=== PATIENT | male | born 1970 | race Caucasian/White ===

== ENCOUNTER 2016-12-12 09:36 | Inpatient (IN) ==
--- NOTE | 2016-12-12 09:52 | Emergency Department Note ---
Disposition Clinical Impression: Suicidal ideation Disposition: Admitted As Inpatient Condition: Good Referrals: NONE,PCP [Primary Care Provider] - Forms: ED Satisfaction Letter Time of Disposition: 12:15 Psych HPI - General Chief Complaint: ED Psychiatric Symptoms Stated Complaint: SI/depression Time Seen by Provider: 12/12/16 09:42 Source: patient, family Mode of arrival: ambulatory Limitations: no limitations Nursing Notes Reviewed: Yes Vital Signs Reviewed: Yes - History of Present Illness HPI Narrative: Patient presents to the ED in the chief complaint of suicidal ideation. Patient has a history of anxiety and depression and previous suicidal ideation. States that he has never had a suicide attempt because he is afraid of going to help. No recent inciting factors but does state he feels like he wants to over the past 2 weeks. Has not really wanted to get out of bed, not eating or drinking well, according to the . Denies any ingestions. He is on psychiatric medicines, which she has been taking as prescribed. Denies any drug use. Denies any pain anywhere. No fever or chills. Does state he feels slightly short of breath but thinks this is because he is out of his asthma inhaler. - Related Data Home Medications Medication Instructions Recorded Confirmed Quetiapine Fumarate [Seroquel] 50 mg PO HS 12/12/16 12/12/16 Sertraline [Zoloft] 50 mg PO 1700 12/12/16 12/12/16 clonazePAM [Clonazepam] 1 mg PO BID PRN 12/12/16 12/12/16 Allergies Allergy/AdvReac Type Severity Reaction Status Date / Time No Known Allergies Allergy Verified 12/12/16 09:41 All systems ED: reviewed and negative except as stated. Constitutional: Denies: fever Cardiovascular: Denies: chest pain Respiratory: Reports: cough, dyspnea Gastrointestinal: Denies: hematochezia Psychiatric: Reports: anxiety, depression, suicidal thoughts Past Medical History - Past Medical History Attestation: Yes The following information was validated with the patient. Source: patient Medical history: Reports: asthma Surgical history: Reports: non-contributory Psychiatric history: Reports: anxiety, depression, panic disorder - Social History Smoking Status: Current some day smoker Smokeless Tobacco Status: No Alcohol use: Reports: none Drug use: Reports: cocaine Physical Exam - General Limitations: no limitations General appearance: alert, in no apparent distress - Head Head exam: atraumatic, normocephalic, normal inspection - Eye Eye exam: Present: normal appearance, PERRL, EOMI - ENT ENT exam: normal exam, normal oropharynx, mucous membranes moist - Neck Neck exam: Present: normal inspection, full ROM, trachea midline - Chest Chest inspection: Present: normal inspection, symmetric chest wall rise - Respiratory Respiratory exam: Present: wheezes - Cardiovascular Cardiovascular exam: Present: regular rate, normal rhythm, normal heart sounds - Abdominal Exam Abdominal exam: Present: soft, Non-Tender. Absent: tenderness, distention, guarding, rebound, rigidity - Extremities Exam Extremities exam: Present: normal inspection, full ROM. Absent: tenderness, pedal edema - Neurological Exam Neurological exam: Present: alert, oriented X3 - Psychiatric Psychiatric exam: Present: depressed, flat affect. Absent: normal affect, normal mood - Skin Skin exam: Present: warm, dry, intact, normal color Course - Reevaluation(s) Reevaluation #1: 1a will admit. Time: 12:14 Vital Signs Temperature 97.5 F L 12/12/16 09:37 Pulse Rate 78 12/12/16 09:37 Respiratory Rate 16 12/12/16 09:37 Blood Pressure 124/86 12/12/16 09:37 O2 Sat by Pulse Oximetry 100 12/12/16 09:37 Temperature 97.5 F L 12/12/16 09:37 Pulse Rate 78 12/12/16 09:44 Respiratory Rate 16 12/12/16 10:57 Blood Pressure 124/86 12/12/16 09:44 O2 Sat by Pulse Oximetry 94 12/12/16 10:57 Oxygen Delivery Oxygen Delivery Room Air Psych - Lab Data Result diagrams: 12/12/16 09:57 12/12/16 09:57 Lab Results 12/12/16 12/12/16 12/12/16 Range/Units 09:51 09:51 09:57 WBC 7.6 (4.3-11.1) K/mcL RBC 5.59 H (4.19-5.50) M/mcL Hgb 16.4 (12.9-16.9) g/dL Hct 47.4 (37.5-50.1) % MCV 84.8 (83.0-100.0) fL MCH 29.3 (28.0-33.3) pg MCHC 34.6 (31.6-35.5) g/dL RDW 12.0 (11.5-14.5) % Plt Count 218 (140-400) K/mcL MPV 9.4 (9.4-12.4) fL Immature Gran % 0.3 (0-4) % Seg Neutrophils % 60.4 % Lymphocytes % 30.3 % Monocytes % 6.1 % Eosinophils % 2.4 % Basophils % 0.5 % Neutrophils # 4.6 (1.6-8.9) K/mcL Lymphocytes # 2.3 (0.6-4.6) K/mcL Monocytes # 0.5 (0.0-1.3) K/mcL Eosinophils # 0.2 (0.0-0.6) K/mcL Basophils # 0.0 (0.0-0.2) K/mcL Sodium (136-145) mEq/L Potassium (3.5-4.5) mEq/L Chloride (98-109) mEq/L Carbon Dioxide (19-29) mEq/L BUN (8-26) mg/dL Creatinine (0.72-1.25) mg/dL Est GFR ( Amer) (> 60) Est GFR (Non-Af Amer) (> 60) BUN/Creatinine Ratio (6-26) Glucose (70-99) mg/dL Calculated Osmolality (280-300) Calcium (8.6-10.8) mg/dL Urine Color Yellow (Yellow) Urine Clarity Clear (Clear) Urine pH 6.0 (5.0-8.0) pH Units Ur Specific [place] 1.017 (1.010-1.025) Urine Protein Negative (Neg-Trace) mg/dL Urine Glucose (UA) Normal (Normal) mg/dL Urine Ketones Negative (Negative) mg/dL Urine Blood Negative (Negative) Urine Nitrite Negative (Negative) Urine Bilirubin Negative (Negative) Urine Urobilinogen Normal (Normal) mg/dL Ur Leukocyte Esterase Negative (Negative) Salicylates (15-30) mg/dL Urine Opiates Screen Negative (Ysmuxs=877) ng/mL Acetaminophen (10-30) mcg/mL Ur Barbiturates Screen Negative (Ifabks=601) ng/mL Ur Phencyclidine Scrn Negative (Cutoff=25) ng/mL Ur Amphetamines Screen Negative (Npcswc=2312) ng/mL U Benzodiazepines Scrn Positive H (Vzbpty=922) ng/mL Urine Cocaine Screen Negative (Cutoff= 300) ng/mL U Marijuana (THC) Screen Negative (Cutoff = 50) ng/mL Ethyl Alcohol (0-10) mg/dL 12/12/16 Range/Units 09:57 WBC (4.3-11.1) K/mcL RBC (4.19-5.50) M/mcL Hgb (12.9-16.9) g/dL Hct (37.5-50.1) % MCV (83.0-100.0) fL MCH (28.0-33.3) pg MCHC (31.6-35.5) g/dL RDW (11.5-14.5) % Plt Count (140-400) K/mcL MPV (9.4-12.4) fL Immature Gran % (0-4) % Seg Neutrophils % % Lymphocytes % % Monocytes % % Eosinophils % % Basophils % % Neutrophils # (1.6-8.9) K/mcL Lymphocytes # (0.6-4.6) K/mcL Monocytes # (0.0-1.3) K/mcL Eosinophils # (0.0-0.6) K/mcL Basophils # (0.0-0.2) K/mcL Sodium 138 (136-145) mEq/L Potassium 4.0 (3.5-4.5) mEq/L Chloride 106 (98-109) mEq/L Carbon Dioxide 23 (19-29) mEq/L BUN 13 (8-26) mg/dL Creatinine 1.35 H (0.72-1.25) mg/dL Est GFR ( Amer) > 60 (> 60) Est GFR (Non-Af Amer) 57 L (> 60) BUN/Creatinine Ratio 10 (6-26) Glucose 175 H (70-99) mg/dL Calculated Osmolality 290 (280-300) Calcium 9.6 (8.6-10.8) mg/dL Urine Color (Yellow) Urine Clarity (Clear) Urine pH (5.0-8.0) pH Units Ur Specific [place] (1.010-1.025) Urine Protein (Neg-Trace) mg/dL Urine Glucose (UA) (Normal) mg/dL Urine Ketones (Negative) mg/dL Urine Blood (Negative) Urine Nitrite (Negative) Urine Bilirubin (Negative) Urine Urobilinogen (Normal) mg/dL Ur Leukocyte Esterase (Negative) Salicylates < 5.0 L (15-30) mg/dL Urine Opiates Screen (Qneyxe=349) ng/mL Acetaminophen < 1.0 L (10-30) mcg/mL Ur Barbiturates Screen (Xpqlmp=178) ng/mL Ur Phencyclidine Scrn (Cutoff=25) ng/mL Ur Amphetamines Screen (Cscacj=6629) ng/mL U Benzodiazepines Scrn (Rvzrie=195) ng/mL Urine Cocaine Screen (Cutoff= 300) ng/mL U Marijuana (THC) Screen (Cutoff = 50) ng/mL Ethyl Alcohol < 10 (0-10) mg/dL - EKG Data EKG attestation: Yes I reviewed and interpreted this EKG. EKG results narrative: Sinus bradycardia, rate 58, NC interval 180, QRS 86, QTC 396, normal axis, no ischemic changes. Psychiatric Medical Clearance - Medical Clearance Checklist Medical History: Abscess of skin or subcutaneous tissue (Inactive) Acute anxiety (Inactive) Panic attack (Inactive) Sprain of foot, left (Inactive) No Social History Section defined Current Vitals: Last Vital Signs Temp 97.5 F L 12/12/16 09:37 Pulse 78 12/12/16 09:44 Resp 16 12/12/16 10:57 BP 124/86 12/12/16 09:44 Pulse Ox 94 12/12/16 10:57 Psychiatric Lab Panel: Drug Levels and Toxicity 12/12/16 12/12/16 09:51 09:57 Urine Opiates Screen Negative Acetaminophen < 1.0 L Ur Barbiturates Screen Negative Ur Phencyclidine Scrn Negative Ur Amphetamines Screen Negative U Benzodiazepines Scrn Positive H Urine Cocaine Screen Negative U Marijuana (THC) Screen Negative Ethyl Alcohol < 10 Abnormal Labs: Abnormal lab results RBC 5.59 M/mcL (4.19-5.50) H 12/12/16 09:57 Creatinine 1.35 mg/dL (0.72-1.25) H 12/12/16 09:57 Est GFR (Non-Af Amer) 57 (> 60) L 12/12/16 09:57 Glucose 175 mg/dL (70-99) H 12/12/16 09:57 Salicylates < 5.0 mg/dL (15-30) L 12/12/16 09:57 Acetaminophen < 1.0 mcg/mL (10-30) L 12/12/16 09:57 U Benzodiazepines Scrn Positive ng/mL (Fqncwr=478) H 12/12/16 09:51 Statement of Medical Clearance: I have evaluated the patient, reviewed diagnostic information, and certify that the patient's medical condition is sufficiently stable that transfer to the psychiatric unit does not pose a significant risk of deterioration.
[2016-12-12 10:03] LABS: Basophils % 0.5 %; Eosinophils # 0.2 K/mcL (0.0-0.6); Eosinophils % 2.4 %; Hematocrit 47.4 % (37.5-50.1); Hemoglobin 16.4 g/dL (12.9-16.9); Immature Granulocytes % 0.3 % (0-4); Lymphocytes # 2.3 K/mcL (0.6-4.6); Lymphocytes % 30.3 %; Mean Corpuscular HGB Conc 34.6 g/dL (31.6-35.5); Mean Corpuscular Hemoglobin 29.3 pg (28.0-33.3); Mean Corpuscular Volume 84.8 fL (83.0-100.0); Mean Platelet Volume 9.4 fL (9.4-12.4); Monocytes # 0.5 K/mcL (0.0-1.3); Monocytes % 6.1 %; Neutrophils # 4.6 K/mcL (1.6-8.9); Platelet Count 218 K/mcL (140-400); Red Blood Count 5.59 M/mcL (4.19-5.50); Segmented Neutrophils % 60.4 %
[2016-12-12 10:05] LABS: Bilirubin,Urine Negative (Negative); Blood,Urine Negative (Negative); Clarity,Urine Clear (Clear); Color,Urine Yellow (Yellow); Glucose,Urine (UA) Normal (Normal); Ketones,Urine Negative (Negative); Leukocyte Esterase,Urine Negative (Negative); Nitrite,Urine Negative (Negative); Protein,Urine Negative (Neg-Trace); Specific Gravity,Urine 1.017 (1.010-1.025); Urobilinogen,Urine Normal (Normal)
[2016-12-12 10:09] LABS: Amphetamine Screen,Urine Negative ng/mL (Cutoff=1000); Barbiturate Screen,Urine Negative ng/mL (Cutoff=200); Benzodiazepines Screen,Urine Positive ng/mL (Cutoff=200); Cannabinoid Screen,Urine Negative ng/mL (Cutoff = 50); Cocaine Screen,Urine Negative ng/mL (Cutoff= 300); Opiate Screen,Urine Negative ng/mL (Cutoff=300); Phencyclidine Screen,Urine Negative ng/mL (Cutoff=25)
[2016-12-12 10:17] LABS: BUN/Creatinine Ratio 10 (6-26); Blood Urea Nitrogen 13 mg/dL (8-26); Calcium 9.6 mg/dL (8.6-10.8); Carbon Dioxide 23 mEq/L (19-29); Chloride 106 mEq/L (98-109); Glucose 175 mg/dL (70-99); Osmolality,Calculated 290 (280-300); Sodium 138 mEq/L (136-145); eGFR For African Americans > 60 (> 60); eGFR For Non-African Americans 57 (> 60)
[2016-12-12 10:19] LABS: Acetaminophen < 1.0 mcg/mL (10-30); Ethanol < 10 mg/dL (0-10); Salicylate < 5.0 mg/dL (15-30)
--- NOTE | 2016-12-12 10:21 | Emergency Department Note ---
START Narrative - START START: I examined this patient and my medical decision-making was reviewed with the emergency medicine resident. I agree with the documented findings, disposition and treatment plan as described except to the extent set forth below. Patient seen with emergency medicine resident Dr. Guille Patiño, Please see a copy of his note for details of the H&P, ED evaluation, management and disposition. I have independently evaluated the patient and confirmed appropriate portions of the history and physical exam. Briefly: A 46-year-old male history of depression presents with suicidal ideations but no discrete plan. Awake and alert and appropriate GCS 15. Afebrile with stable vital signs. Physical examination is benign. Patient will undergo screening labs for medical clearance then consultation with mental health services. Disposition pending.
[2016-12-12] MEDS ORDERED: Ipratropium/Albuterol Neb 3 ML IH ONE (10:33)
[2016-12-12] MEDS ORDERED: Ibuprofen 400 MG TABLET PO PRN (16:52)
[2016-12-12] MEDS ORDERED: hydrOXYzine pamoate 25 MG CAPSULE PO PRN (16:52)
[2016-12-12] MEDS ORDERED: Mag Hydrox/Al Hydrox/Simeth 30 ML UDC PO PRN (16:52)
[2016-12-12] MEDS ORDERED: Haloperidol Lactate 5 MG/ML VIAL IM PRN (16:52)
[2016-12-12] MEDS ORDERED: *HR* LORazepam 2 MG/ML VIAL IM PRN (16:52)
[2016-12-12] MEDS ORDERED: MOM Conc 10 ML UD.LIQ PO PRN (16:52)
[2016-12-12] MEDS ORDERED: *HR* LORazepam 1 MG TABLET PO PRN (16:52)
--- NOTE | 2016-12-12 19:51 | Electrocardiograph Report ---
[address] [address] Test Date: 2016-12-12 Pat Name: Ceasar Moore Department: 103 Room: 1A45 Gender: M [employer]visor [employer]: JAY : 1970 Requested By: Guille Patiño Order Number: [id number] Reading MD: Raymond Villafuerte MD Measurements Intervals Golden Rate: 58 P: 43 NC: 180 QRS: 56 QRSD: 86 T: 52 QT: 399 QTc: 396 Interpretive Statements SINUS BRADYCARDIA Electronically Signed On 12-12-2016 19:49:53 EDT by Raymond Villafuerte MD
[2016-12-12] MEDS: clonazePAM 1 MG TABLET PO PRN (20:23)
[2016-12-13] MEDS: clonazePAM 1 MG TABLET PO PRN ×2 (10:06→20:59)
--- NOTE | 2016-12-13 12:40 | Psychiatry History & Physical ---
Date of Encounter: 12/13/16 Time of Encounter: 12:00 History of Present Illness Patient Stated Chief Complaint: Depression and suicidal ideation Medicare Admission Attestation: For traditional Medicare patients the provided hospital inpatient services are reasonable and necessary and in the case of services not specified as inpatient -only under 42 CFR 419.22 (n), that they are appropriately provided as inpatient services in accordance 42 CFR 412.3. For Critical Access Hospital the patient may reasonably be expected to be discharged or transferred to a hospital within 96 hours after admission to the Critical Access Hospital. Admitted From: Emergency Dept History of Present Illness: Mr. Moore is a 46 year old male admitted from the emergency department for depression and suicidal ideation. Patient had long history of psychiatric treatment and has been admitted in the past most recent admission was in 2006 patient also was followed up at the [facility] but recently has not been followed and and dysthymic having seeing a nurse practitioner who started him on medication. Patient carried a diagnosis of depression and anxiety panic disorder and alcohol dependence. Patient is unemployed and is poorly motivated to do any activities and resistant to any direction advice to increase his activity level. Patient reports she has been sober for a few months and denies smoking or using large amounts of caffeine. Patient has been treated by different medication the past and consistently reported lack of effect or no response and he is frustrated and feeling hopeless and suicidal. Patient does not list any specific crisis or stressors at this time. Past Med Surg Social Fam HX - Past Medical History Medical history: asthma - Past Psychiatric History Psychiatric history: Reports: anxiety, depression, panic disorder, previous psychiatric hospitalization Past psychiatric history details: Last hospitalization was in January 2007 at [facility] - Past Surgical History Surgical History: non-contributory - Social History Smoking Status: Former smoker Smokeless Tobacco Status: No Alcohol use: none Drug use: cocaine - Family History Mother Adopted: [place]: [place] Family Member Ethnicity: Non- Living Status: Still Living Hx Family Cardiac Disorders: No Hx Family Respiratory Disorders: Yes (asthma) Hx Family Cancer: Yes (breast) Hx Family GI Disorders: Yes (GERD, IBS) Hx Family Genitourinary Disorders: No Hx Family Endocrine Disorder: No Hx Family Musculoskeletal Disorders: No Hx Family Neuromuscular Disorders: Yes (fibromyalgia) Hx Family Neurologic Disorders: No Hx Family HEENT Disorders: No Hx Family Autoimmune Disorders: No Hx Family Reproductive Disorders: Yes (hysterectomy) Hx Family Psychosocial Disorders: No Medications & Allergies Quetiapine Fumarate [Seroquel] 50 mg PO HS 12/12/16 [History] Sertraline [Zoloft] 50 mg PO 1700 12/12/16 [History] clonazePAM [Clonazepam] 1 mg PO BID PRN 12/12/16 [History] 3 Allergy/AdvReac Type Severity Reaction Status Date / Time No Known Allergies Allergy Verified 12/12/16 09:41 Review of Systems Psychiatric: Reports: depression, anxiety, suicidal ideation Mental Status Exam Patient orientation: Yes Person, Yes Time, Yes Place Level of alertness: Alert Patient appearance: Appropriate, Well Groomed Behavior: calm, cooperative Psychomotor activity: Slowed Eye contact: Maintains Eye Contact Mood description: Euthymic/stable, Depressed Affect description: congruent with mood, full range Speech pattern: Normal rate, Normal rhythm, Normal tone Speech volume: Normal Thought process: Linear, Goal Oriented Thought content: Yes Suicidal ideation, No Homicidal ideation, No Overt delusions Perceptual disturbances: No Auditory hallucinations, No Visual hallucinations Attention span: Capable of Focused Attention Memory description: Grossly Intact Patient reliability: Reliable Historian Intelligence estimate: Average Judgment: Limited Insight: Partial Results - Vital Signs Vital signs: Temp Pulse Resp BP Pulse Ox 97.8 F 61 16 114/73 99 12/13/16 09:00 12/13/16 09:00 12/13/16 09:00 12/13/16 09:00 12/12/16 14:10 - Labs Labs: Laboratory Last Values WBC 7.6 K/mcL (4.3-11.1) 12/12/16 09:57 RBC 5.59 M/mcL (4.19-5.50) H 12/12/16 09:57 Hgb 16.4 g/dL (12.9-16.9) 12/12/16 09:57 Hct 47.4 % (37.5-50.1) 12/12/16 09:57 MCV 84.8 fL (83.0-100.0) 12/12/16 09:57 MCH 29.3 pg (28.0-33.3) 12/12/16 09:57 MCHC 34.6 g/dL (31.6-35.5) 12/12/16 09:57 RDW 12.0 % (11.5-14.5) 12/12/16 09:57 Plt Count 218 K/mcL (140-400) 12/12/16 09:57 MPV 9.4 fL (9.4-12.4) 12/12/16 09:57 Immature Gran % 0.3 % (0-4) 12/12/16 09:57 Seg Neutrophils % 60.4 % 12/12/16 09:57 Lymphocytes % 30.3 % 12/12/16 09:57 Monocytes % 6.1 % 12/12/16 09:57 Eosinophils % 2.4 % 12/12/16 09:57 Basophils % 0.5 % 12/12/16 09:57 Neutrophils # 4.6 K/mcL (1.6-8.9) 12/12/16 09:57 Lymphocytes # 2.3 K/mcL (0.6-4.6) 12/12/16 09:57 Monocytes # 0.5 K/mcL (0.0-1.3) 12/12/16 09:57 Eosinophils # 0.2 K/mcL (0.0-0.6) 12/12/16 09:57 Basophils # 0.0 K/mcL (0.0-0.2) 12/12/16 09:57 Sodium 138 mEq/L (136-145) 12/12/16 09:57 Potassium 4.0 mEq/L (3.5-4.5) 12/12/16 09:57 Chloride 106 mEq/L (98-109) 12/12/16 09:57 Carbon Dioxide 23 mEq/L (19-29) 12/12/16 09:57 BUN 13 mg/dL (8-26) 12/12/16 09:57 Creatinine 1.35 mg/dL (0.72-1.25) H 12/12/16 09:57 Est GFR ( Amer) > 60 (> 60) 12/12/16 09:57 Est GFR (Non-Af Amer) 57 (> 60) L 12/12/16 09:57 BUN/Creatinine Ratio 10 (6-26) 12/12/16 09:57 Glucose 175 mg/dL (70-99) H 12/12/16 09:57 Calculated Osmolality 290 (280-300) 12/12/16 09:57 Calcium 9.6 mg/dL (8.6-10.8) 12/12/16 09:57 Urine Color Yellow (Yellow) 12/12/16 09:51 Urine Clarity Clear (Clear) 12/12/16 09:51 Urine pH 6.0 pH Units (5.0-8.0) 12/12/16 09:51 Ur Specific [place] 1.017 (1.010-1.025) 12/12/16 09:51 Urine Protein Negative mg/dL (Neg-Trace) 12/12/16 09:51 Urine Glucose (UA) Normal mg/dL (Normal) 12/12/16 09:51 Urine Ketones Negative mg/dL (Negative) 12/12/16 09:51 Urine Blood Negative (Negative) 12/12/16 09:51 Urine Nitrite Negative (Negative) 12/12/16 09:51 Urine Bilirubin Negative (Negative) 12/12/16 09:51 Urine Urobilinogen Normal mg/dL (Normal) 12/12/16 09:51 Ur Leukocyte Esterase Negative (Negative) 12/12/16 09:51 Salicylates < 5.0 mg/dL (15-30) L 12/12/16 09:57 Urine Opiates Screen Negative ng/mL (Gfqpaz=767) 12/12/16 09:51 Acetaminophen < 1.0 mcg/mL (10-30) L 12/12/16 09:57 Ur Barbiturates Screen Negative ng/mL (Fxvitl=036) 12/12/16 09:51 Ur Phencyclidine Scrn Negative ng/mL (Cutoff=25) 12/12/16 09:51 Ur Amphetamines Screen Negative ng/mL (Hbpord=2324) 12/12/16 09:51 U Benzodiazepines Scrn Positive ng/mL (Icswrf=258) H 12/12/16 09:51 Urine Cocaine Screen Negative ng/mL (Cutoff= 300) 12/12/16 09:51 U Marijuana (THC) Screen Negative ng/mL (Cutoff = 50) 12/12/16 09:51 Ethyl Alcohol < 10 mg/dL (0-10) 12/12/16 09:57 Assessment and Plan (1) Major depression, recurrent, chronic Current visit: Yes Status: Acute Plan: Admit inpatient for safety and stabilization, Close observation, Suicide Precautions per unit protocol, Encourage participation in unit milieu, Group Therapy, Monitor sleep, Monitor appetite Additional Plan: Increase Zoloft to 100 mg daily Risks, benefits, side effects, alternatives discussed w/pt: Yes Patient agreeable to treatment: Yes
[2016-12-14] MEDS: clonazePAM 1 MG TABLET PO PRN ×2 (09:15→20:58)
--- NOTE | 2016-12-14 14:35 | Psychiatry Progress Note ---
Date of Encounter: 12/14/16 Time of Encounter: 14:32 Subjective Interval history: Patient is seen for follow-up. He is reporting some somatic complaints like mild headache, left sided abdominal pain for the past month, not motivated to make any changes. Affect is superficial and vague. Staff report he self isolates. Denies suicidal ideation, minimally participating in activities and passive in interaction. Review of Systems Psychiatric: Reports: depression, anxiety, suicidal ideation Objective: Exam Patient orientation: Yes Person, Yes Time, Yes Place Level of alertness: Alert Patient appearance: Appropriate, Well Groomed Behavior: calm, cooperative, withdrawn, other (Superficial) Psychomotor activity: Normal Eye contact: Maintains Eye Contact Mood description: Euthymic/stable Affect description: congruent with mood, flat Speech pattern: Normal rate, Normal rhythm, Normal tone Speech volume: Normal Thought process: Linear, Goal Oriented Thought content: No Suicidal ideation, No Homicidal ideation, No Overt delusions Perceptual disturbances: No Auditory hallucinations, No Visual hallucinations Judgment: Fair Insight: Partial Results - Vital Signs Vital Signs: Temp Pulse Resp BP Pulse Ox 97.6 F 63 16 109/75 99 12/14/16 09:00 12/14/16 09:00 12/14/16 09:00 12/14/16 09:00 12/12/16 14:10 Assessment and Plan (1) Major depression, recurrent, chronic Current visit: Yes Status: Acute Plan: Continue hospitalization, Close observation, Suicide Precautions per unit protocol, Encourage participation in unit milieu, Group Therapy, Monitor sleep, Monitor appetite Risks, benefits, side effects, alternatives discussed w/pt: Yes Patient agreeable to treatment: Yes Consult Discharge Plan - Plan Referrals: Radhames Mcrae [facility] [employer] Zoraida [Outside] - 12/27/16 3:00 pm (The above appointment is with Debbie Jackson for outpatient psychiatric assessment and medication management services. You will also see Ekaterina on January 03, 2017 at 2:00 PM for mental health counseling services.)
[2016-12-15] MEDS: clonazePAM 1 MG TABLET PO PRN ×2 (08:24→20:37)
--- NOTE | 2016-12-15 15:20 | Psychiatry Progress Note ---
Date of Encounter: 12/15/16 Time of Encounter: 15:18 Subjective Interval history: Patient seen for follow-up. Staff reports she is isolating did not participate in groups or activities. He continued to report occasional anxiety and feel increase in Zoloft caused some increase in anxiety. I discussed with him reduce Zoloft back to 50 mg and adding propranolol as needed for anxiety as a trial treatment. She is agreeable and it will be started. Denied any suicidal ideation and continued to be Passive. Review of Systems Psychiatric: Reports: depression, anxiety, suicidal ideation Objective: Exam Patient orientation: Yes Person, Yes Time, Yes Place Level of alertness: Alert Patient appearance: Appropriate, Well Groomed Behavior: calm, cooperative, anxious, guarded Psychomotor activity: Normal Eye contact: Maintains Eye Contact Mood description: Euthymic/stable Affect description: congruent with mood, full range Speech pattern: Normal rate, Normal rhythm, Normal tone Speech volume: Normal Thought process: Linear, Goal Oriented Thought content: No Suicidal ideation, No Homicidal ideation, No Overt delusions Perceptual disturbances: No Auditory hallucinations, No Visual hallucinations Judgment: Fair Insight: Partial Results - Vital Signs Vital Signs: Temp Pulse Resp BP Pulse Ox 98 F 67 16 118/80 99 12/15/16 08:28 12/15/16 08:28 12/15/16 08:28 12/15/16 08:28 12/12/16 14:10 Assessment and Plan (1) Major depression, recurrent, chronic Current visit: Yes Status: Acute Plan: Continue hospitalization, Close observation, Suicide Precautions per unit protocol, Encourage participation in unit milieu, Group Therapy, Monitor sleep, Monitor appetite Additional Plan: We will decrease Zoloft to 50 mg daily and adds propranolol 20 mg by mouth twice a day when necessary for anxiety Risks, benefits, side effects, alternatives discussed w/pt: Yes Patient agreeable to treatment: Yes Consult Discharge Plan - Plan Referrals: Radhames Mcrae [facility] [employer] Zoraida [Outside] - 12/27/16 3:00 pm (The above appointment is with Debbie Jackson for outpatient psychiatric assessment and medication management services. You will also see Ekaterina on January 03, 2017 at 2:00 PM for mental health counseling services.)
[2016-12-16] MEDS: clonazePAM 1 MG TABLET PO PRN (09:39)
--- NOTE | 2016-12-16 11:19 | Psychiatry Progress Note ---
Date of Encounter: 12/16/16 Time of Encounter: 11:00 Subjective Interval history: Patient is 46 year old seen today , chart reviewed and case d/w treatment team and staff. Patient still is dysphoric, feels hopeless, worthless and guilt, stating i feel like giving up , he is by mostly by himself , i cannot be around people, he has thoughts of giving up and not living. patient was off zoloft for long then off and was put back on on unit with increased dose which made him jittery and more anxious so was decreased to 50 mg and today he does not feel that jittery. will increase seroquel 100 mg hs and 25 mg at noon for anxiety. continue propranolol prn. denies side effects. Review of Systems Psychiatric: Reports: depression, anxiety, abnormal sleep pattern, suicidal ideation, anhedonia, hopelessness Objective: Exam Patient orientation: Yes Person, Yes Time, Yes Place Level of alertness: Alert Patient appearance: Appropriate Behavior: cooperative, withdrawn Psychomotor activity: Slowed Eye contact: Minimal Contact Mood description: Depressed Affect description: dysphoric Speech pattern: Slowed Speech volume: Soft/Quiet Thought process: Slowed Thinking Thought content: Yes Suicidal ideation, Yes Preoccupation, Yes Guilt Judgment: Limited Insight: Partial Results - Vital Signs Vital Signs: Temp Pulse Resp BP Pulse Ox 97.6 F 85 16 96/71 99 12/16/16 09:00 12/16/16 09:00 12/16/16 09:00 12/16/16 09:00 12/12/16 14:10 Assessment and Plan (1) Suicidal ideation Current visit: Yes Status: Acute Plan: Continue hospitalization, Close observation, Suicide Precautions per unit protocol, Encourage participation in unit milieu, Group Therapy, Monitor sleep, Monitor appetite, Family/Supportive other meeting Additional Plan: Patient remains depress , anhedonia, hopeless, want to give up. Patient agreeable to treatment: Yes (2) Major depression, recurrent, chronic Current visit: Yes Status: Acute Plan: Continue hospitalization, Close observation, Suicide Precautions per unit protocol, Encourage participation in unit milieu, Group Therapy, Monitor sleep, Monitor appetite, Family/Supportive other meeting Risks, benefits, side effects, alternatives discussed w/pt: Yes Patient agreeable to treatment: Yes Consult Discharge Plan - Plan Referrals: Radhames Mcrae [facility] Specialistbritni Conway [Outside] - 12/27/16 3:00 pm (The above appointment is with Debbie Jackson for outpatient psychiatric assessment and medication management services. You will also see Ekaterina on January 03, 2017 at 2:00 PM for mental health counseling services.)
[2016-12-17] MEDS: clonazePAM 1 MG TABLET PO PRN (09:36)
--- NOTE | 2016-12-17 14:14 | Psychiatry Progress Note ---
Date of Encounter: 12/17/16 Time of Encounter: 14:00 Subjective Interval history: Patient seen today case d/w treatment team and staff. States i am ok today , still getting prn for anxiety, and using his inhaler 3-4 times a day. states seroquel is helping and anxiety still thee , he is sad with guilt and hopelessness, denies suicidal thoughts today. denies side effects. states propranolol helped him also. will decrease propranolol to 10 mg tid prn. Review of Systems Psychiatric: Reports: depression, anxiety, abnormal sleep pattern, anhedonia, hopelessness Objective: Exam Patient orientation: Yes Person, Yes Time, Yes Place Level of alertness: Alert Patient appearance: Appropriate Behavior: calm, cooperative, anxious Psychomotor activity: Normal Eye contact: Maintains Eye Contact Mood description: Depressed, Anxious Affect description: congruent with mood Speech pattern: Coherent Speech volume: Normal Thought process: Intact Thought content: Yes Intact, Yes Guilt Judgment: Fair Insight: Full Results - Vital Signs Vital Signs: Temp Pulse Resp BP Pulse Ox 98 F 16 68 108/73 99 12/17/16 09:45 12/17/16 09:45 12/17/16 09:45 12/17/16 09:45 12/12/16 14:10 Assessment and Plan (1) Suicidal ideation Current visit: Yes Status: Acute Patient agreeable to treatment: Yes (2) Major depression, recurrent, chronic Current visit: Yes Status: Acute Risks, benefits, side effects, alternatives discussed w/pt: Yes Patient agreeable to treatment: Yes Consult Discharge Plan - Plan Referrals: [place] [facility] Marketing Programs Manager Zoraida [Outside] - 12/27/16 3:00 pm (The above appointment is with Debbie Jackson for outpatient psychiatric assessment and medication management services. You will also see Ekaterina on January 03, 2017 at 2:00 PM for mental health counseling services.)
[2016-12-17] MEDS ORDERED: clonazePAM 0.5 MG TABLET PO PRN (14:18)
--- NOTE | 2016-12-18 10:01 | Psychiatry Progress Note ---
Date of Encounter: 12/18/16 Time of Encounter: 09:40 Subjective Interval history: Patient seen today , case d/w staff and treatment team , he is still withdrawn , attended some groups. As per patient slept alright, depression is still there , his antidepressant was decreased to 50 mg as gave side effects. 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 He has not worked for a while since increase anxiety around people and stopped working and got more depressed. will dc zoloft and start prozac 20 mg, side effects explained to patient. he agreed with plan. Review of Systems Psychiatric: Reports: depression, anxiety, abnormal sleep pattern, anhedonia, hopelessness Objective: Exam Patient orientation: Yes Person, Yes Time, Yes Place Level of alertness: Alert Patient appearance: Appropriate Behavior: calm, cooperative, withdrawn Psychomotor activity: Slowed Eye contact: Maintains Eye Contact Mood description: Depressed, Anxious Affect description: congruent with mood Speech pattern: Slowed Speech volume: Soft/Quiet Thought process: Slowed Thinking Thought content: Yes Guilt Judgment: Limited Insight: Partial Results - Vital Signs Vital Signs: Temp Pulse Resp BP Pulse Ox 97.6 F 66 16 108/72 99 12/17/16 20:44 12/17/16 20:44 12/17/16 20:44 12/17/16 20:44 12/12/16 14:10 Assessment and Plan (1) Suicidal ideation Current visit: Yes Status: Acute Patient agreeable to treatment: Yes (2) Major depression, recurrent, chronic Current visit: Yes Status: Acute Risks, benefits, side effects, alternatives discussed w/pt: Yes Patient agreeable to treatment: Yes Consult Discharge Plan - Plan Referrals: Radhames Mcrae [facility] Tiffanie Conway [Outside] - 12/27/16 3:00 pm (The above appointment is with Debbie Jackson for outpatient psychiatric assessment and medication management services. You will also see Ekaterina on January 03, 2017 at 2:00 PM for mental health counseling services.)
[2016-12-18] MEDS: FLUoxetine 20 MG CAPSULE PO SCH (10:37)
[2016-12-19] MEDS: FLUoxetine 20 MG CAPSULE PO SCH (08:48)
[2016-12-19] MEDS ORDERED: clonazePAM 0.5 MG TABLET PO PRN (11:10)
--- NOTE | 2016-12-19 11:10 | Psychiatry Progress Note ---
Date of Encounter: 12/19/16 Time of Encounter: 10:40 Subjective Interval history: Patient seen today case d/w treatment team , he is showing improvement. As per him he is better day by day , still dysphoric, sleep pretty good, attending groups and plans to attend out patient . he feels anxiety is getting in control. no side effects. start discharge planning for tommorow, is remains stable. will decrease klonopin to 0.25 mg po prn bid , he has been tapered down and doing welll with other meds. Review of Systems Psychiatric: Reports: depression, anxiety, abnormal sleep pattern, anhedonia, hopelessness Objective: Exam Patient orientation: Yes Person, Yes Time, Yes Place Level of alertness: Alert Patient appearance: Appropriate Behavior: calm, cooperative Psychomotor activity: Normal Eye contact: Maintains Eye Contact Mood description: Euthymic/stable Affect description: congruent with mood Speech pattern: Coherent Speech volume: Soft/Quiet Thought process: Intact Thought content: Yes Intact Judgment: Fair Insight: Partial Results - Vital Signs Vital Signs: Temp Pulse Resp BP Pulse Ox 98 F 71 16 119/80 99 12/19/16 09:00 12/19/16 09:00 12/19/16 09:00 12/19/16 09:00 12/12/16 14:10 Assessment and Plan (1) Suicidal ideation Current visit: Yes Status: Acute Patient agreeable to treatment: Yes (2) Major depression, recurrent, chronic Current visit: Yes Status: Acute Risks, benefits, side effects, alternatives discussed w/pt: Yes Patient agreeable to treatment: Yes Consult Discharge Plan - Plan Referrals: Radhames Mcrae [facility] Tiffanie Conway [Outside] - 12/27/16 3:00 pm (The above appointment is with Debbie Jackson for outpatient psychiatric assessment and medication management services. You will also see Ekaterina on January 03, 2017 at 2:00 PM for mental health counseling services.) [facility]13/17 8:00 am (The above appointment is with Maura Arredondo for outpatient substance abuse counseling services. Please bring your photo ID and insurance card (if you have insurance) . This is the first available new patient appointment. You may contact the office regularly to check for cancellations that may allow you to be seen sooner.)
[2016-12-20] MEDS: FLUoxetine 20 MG CAPSULE PO SCH (08:47)
--- NOTE | 2016-12-20 09:55 | Discharge Summary ---
Date of Encounter: 12/20/16 Time of Encounter: 09:30 Diagnosis - Discharge Diagnosis (1) Suicidal ideation Status: Resolved Comments: patient is not suicidal/homicidal at present . (2) Major depression, recurrent, chronic Status: Acute Comments: patient improved with medication and depression is stable. Medications - Discharge Medications Prescriptions: FLUoxetine HCl [Prozac] 20 mg PO DAILY #30 capsule Propranolol [Inderal] 10 mg PO TID PRN #60 tablet PRN Reason: Anxiety Quetiapine Fumarate [Seroquel] 100 mg PO HS #30 tablet Quetiapine Fumarate [Seroquel] 25 mg PO 0800,1500 #60 tablet Albuterol Sulfate [Albuterol Inhaler] 2 puff IH [id number] PRN inhaler 12/20/16 [ Rx] FLUoxetine HCl [Prozac] 20 mg PO DAILY #30 capsule 12/20/16 [Rx] Propranolol [Inderal] 10 mg PO TID PRN #60 tablet 12/20/16 [Rx] Quetiapine Fumarate [Seroquel] 25 mg PO 0800,1500 #60 tablet 12/20/16 [Rx] Quetiapine Fumarate [Seroquel] 100 mg PO HS #30 tablet 12/20/16 [Rx] 3 Allergy/AdvReac Type Severity Reaction Status Date / Time No Known Allergies Allergy Verified 12/12/16 09:41 Provider Date of admission: 12/12/16 17:27 Primary care physician: PCP NONE Assessment and Plan - Patient/Caregiver Discharge Instructions Diet: regular diet - Follow up Plan [facility] - 12/27/16 3:00 pm (The above appointment is with Debbie Jackson for outpatient psychiatric assessment and medication management services. You will also see Ekaterina on January 03, 2017 at 2:00 PM for mental health counseling services.) [facility] 01[facility]13/[facility] 8:00 am (The above appointment is with Maura Arredondo for outpatient substance abuse counseling services. Please bring your photo ID and insurance card (if you have insurance) . This is the first available new patient appointment. You may contact the office regularly to check for cancellations that may allow you to be seen sooner.) Overall status at discharge: Stable Disposition: Home, Self-Care Hospital Course Hospital course: Mr. Moore is a 46 year old male with h/o Depression and anxiety and suicidal thoghts , he has been sober from Alcohol for 4 months. During course of hospitalization patient showed improvement in his depression , anxiety and suicidal thoughts, he denies any cravings, he attended groups and compliant with unit milieu , he has support from his family and has ling and short term ppplans. his antidepressant was changed to Prozac and seroquel was increased, he did better with propranolol for anxiety and not taken klonopin which was decreased slowly to 0.25 mg bid , he has some at home and understands to take for anxiety attacks only. he has follow up appointment and counselling jesse., will go to recovery groups as per him. At present not in danger to self/others. Time spent discussing smoking cessation with patient: 3 to 10 minutes Does patient wish to continue nicotine replacement upon disc: No (patient does not smoke) - Time Spent with Patient Total time spent providing and/or coordinating discharge services: Less than 30 minutes Quality - Multiple Antipsychotics Patient discharged on 2 or more antipsychotic medications: No Procedures - Procedures Procedures: Medication Management, Crisis Stabilization, Supportive Therapy, Group Therapy, Psychoeducational Therapy Mental Status Exam - Mental Status Exam Patient orientation: Yes Person, Yes Time, Yes Place Level of alertness: Alert Patient appearance: Appropriate Behavior: calm, cooperative Psychomotor activity: Normal Eye contact: Maintains Eye Contact Mood description: Euthymic/stable Affect description: congruent with mood Speech pattern: Normal rate, Normal rhythm, Normal tone, Coherent Speech Volume: Normal Thought process: Intact Thought Content: Yes Intact Judgment: Good Insight: Full (patient not in danger to self/others at present.)
[2016-12-20 11:21] VITALS: BP 131/81
== END 2016-12-20 12:50 | disposition home or self-care (01) | DRG 751 ==
LOC: 1ANU 09:36 → EMEROO 09:36 → 1ANU 15:21 → SUATTDRO 17:27
PROVIDERS: ADMIT Psychiatry & Neurology Psychiatry; ATTEND Psychiatry & Neurology Psychiatry